=== PATIENT | male | born 1975 ===

== ENCOUNTER 2023-09-06 04:10 | Day surgery (SDC) | payer OTHER ==
[2023-08-30 13:59] VITALS: BMI 26.3
[2023-09-06] MEDS ORDERED: FENTANYL CITRATE/PF 50 MCG/ML VIAL ONE (12:53)
[2023-09-06] MEDS ORDERED: MIDAZOLAM HCL 2 MG/2 ML SINGLE DOSE VIAL ONE (12:53)
[2023-09-06 13:04] VITALS: RESP 18
[2023-09-06 16:38] VITALS: BP 105/65; PULSE 57; TEMP 97.7
== END 2023-09-06 14:55 | disposition home or self-care (01) ==
LOC: JASU-SURG 04:10
PROVIDERS: ATTEND Urology
PROC: 0TF4XZZ Fragmentation in Left Kidney Pelvis, External Approach (ICD-10-PCS; principal; 2023-09-06 13:30)
DX: N20.0 Calculus of kidney (principal)